=== PATIENT | male | born 1965 | race Caucasian/White ===

== ENCOUNTER 2018-08-03 04:37 | Emergency (ER) | payer MEDICARE ==
[~2018-08-03] VITALS: Ht 170.2 cm; Wt 91.2 kg
[2018-08-03 04:38] VITALS: BP_SYST 163
[2018-08-03 05:06] VITALS: BP_SYST 163
== END 2018-08-03 05:06 ==
LOC: SED 04:37
DX: G89.29 Other chronic pain (principal); M79.605 Pain in left leg; M79.604 Pain in right leg; I11.0 Hypertensive heart disease with heart failure; I50.9 Heart failure, unspecified; E11.9 Type 2 diabetes mellitus without complications; J45.909 Unspecified asthma, uncomplicated
CPT/HCPCS: 99283

== ENCOUNTER 2021-06-28 20:26 | Emergency (ER) | payer MEDICARE, OTHER ==
[~2021-06-28] VITALS: Ht 170.2 cm; Wt 77.1 kg
[2021-06-28 20:30] VITALS: BP_SYST 118
--- NOTE | 2021-06-28 20:34 | NUR ---
Placed in room 6 . Placed on cardiac rehab nurse, blood pressure machine and pulse oximeter. To gown for exam. Side rails up. Report given to Kris HERNANDEZ.
--- NOTE | 2021-06-28 20:40 | NUR ---
DR GRISSOM IN TO ASSESS
--- NOTE | 2021-06-28 20:40 | NUR ---
HERE FROM LOCAL SKILLED NURSING AFTER BEING HELD FOR INTOXICATION, UPON DISCHARGE HE WAS WEAK. CALM, ALERT, RESP UNLABORED, SKIN WARM AND DRY. COMMUNICATES IN FULL COMPLETE SENTECES
[2021-06-28] MEDS ORDERED: ONDANSETRON HCL 4 MG/2 ML VIAL IVP ONE (20:45)
[2021-06-28] MEDS ORDERED: LORazepam 2 MG/ML VIAL IVP ONE (20:45)
--- NOTE | 2021-06-28 21:15 | NUR ---
BACK FROM CT HEAD, LABS SENT, PT CALM, ALERT, NO DISTRESS
[2021-06-28 21:45] LABS: RED CELL DISTRIBUTION WIDTH 14.3 % (9.0-15.0)
[2021-06-28 21:54] LABS: BASOPHILS % (AUTO) 0.9 % (0.0-2.0); EOSINOPHILS # (AUTO) 0.1 K/uL (0.0-0.4); EOSINOPHILS % (AUTO) 1.4 % (0.0-4.0); HEMATOCRIT 38.9 % (36-54); HEMOGLOBIN 13.5 g/dL (14.0-18.0); LYMPHOCYTES # (AUTO) 1.1 K/uL (1.0-5.5); LYMPHOCYTES % (AUTO) 20.2 % (20.5-51.5); MEAN CORPUSCULAR HEMOGLOBIN 31 pg (27-31); MEAN CORPUSCULAR HGB CONC 35 % (32-36); MEAN CORPUSCULAR VOLUME 88 fL (79.0-98.0); MONOCYTES # (AUTO) 0.5 K/uL (0.0-1.0); MONOCYTES % (AUTO) 9.2 % (1.7-9.3); NEUTROPHILS # (AUTO) 3.7 K/uL (1.8-7.7); NEUTROPHILS % (AUTO) 68.3 % (40.0-70.0); PLATELET COUNT (AUTO) 182 K/uL (130-430); WHITE BLOOD COUNT (AUTO) 5.5 K/uL (4.8-10.8)
[2021-06-28 22:01] LABS: ACETONE, SERUM SMALL (NEGATIVE)
[2021-06-28 22:14] LABS: INR 1.1 (0.80-1.20); PROTHROMBIN TIME 11.5 SECS (9.5-12.5)
[2021-06-28 22:15] LABS: ANION GAP 10 (5-15); CALCIUM 8.8 mg/dL (8.4-11.0); CHLORIDE 105 mmol/L (98-107); CREATININE 0.52 mg/dL (0.55-1.30); GLUCOSE 108 mg/dL (70-99); POTASSIUM 3.7 mmol/L (3.5-5.1); SODIUM SERUM 142 mmol/L (136-145); UREA NITROGEN, BLOOD 19 mg/dL (8-21)
--- NOTE | 2021-06-28 22:15 | NUR ---
SITTING UP EATING MEAL, TOLERATING WELL. RESP UNLABORED
[2021-06-28 22:20] LABS: ALANINE AMINOTRANSFERASE 27 U/L (12-78); ALBUMIN 3.8 g/dL (3.4-4.8); AMYLASE 25 U/L (0-100); ASPARTATE AMINOTRANSFERASE 20 U/L (10-37); LIPASE 22 U/L (73-393); TOTAL BILIRUBIN 1.4 mg/dL (0.0-1.0)
[2021-06-28 22:23] LABS: ALCOHOL, BLOOD < 3 mg/dL (<10)
--- NOTE | 2021-06-28 23:35 | NUR ---
ALERT, COMMUNICATES CLEARLY, RESP UNLABORED, SKIN WARM AND DRY
[2021-06-29] MEDS ORDERED: MORPHINE 2 MG/ML INJ. SYRINGE IVP ONE (01:45)
[2021-06-29] MEDS ORDERED: ONDANSETRON HCL 4 MG/2 ML VIAL IVP ONE (01:45)
--- NOTE | 2021-06-29 01:45 | NUR ---
Asleep, not in distress noted
--- NOTE | 2021-06-29 04:06 | NUR ---
Patient resting quietly. No acute distress noted. Vital signs within normal range.
--- NOTE | 2021-06-29 05:06 | NUR ---
Patient resting quietly. No acute distress noted. Vital signs within normal range.
[2021-06-29 05:55] VITALS: BP_SYST 110
== END 2021-06-29 05:55 | disposition home or self-care (01) ==
LOC: SED 20:26
DX: F10.129 Alcohol abuse with intoxication, unspecified (principal); R11.10 Vomiting, unspecified; Z88.6 Allergy status to analgesic agent; Y90.0 Blood alcohol level of less than 20 mg/100 ml; Z79.899 Other long term (current) drug therapy
CPT/HCPCS: 36415; 70450; 76376; 80053; 82009; 82150; 83605; 83690; 84484; 85025; 85610; 85730; 96374; 99285; G0482; J2405